=== PATIENT | male | born 1960 | race Caucasian/White ===

== ENCOUNTER 2016-10-25 07:10 | Day surgery (SDC) | payer BC ==
[~2016-10-25] VITALS: Ht 177.8 cm; Wt 89.0 kg
[2016-10-25] VITALS (15 sets, daily range): BP systolic 108–129; BP diastolic 70–83; PULSE 52–66; RESP 16–18; Ht 177.8 cm; Wt 89.0 kg
[~2016-10-25 07:10] MED LIST: ASPIRIN; ATORVASTATIN; LISINOPRIL; METOPROLOL; PLAVIX; ZANTAC
[2016-10-25 09:04] LABS: BASOPHIL # 0.1 10^3/ul (0.0-0.1); BASOPHILS % 0.5 % (0.0-2.0); EOSINOPHILS # 0.2 10^3/ul (0.0-0.5); HEMATOCRIT 43.2 % (42.0-52.0); HEMOGLOBIN 15.1 g/dl (14.0-18.0); LYMPHOCYTES # 2.2 10^3/ul (0.8-2.9); LYMPHOCYTES % 23.6 % (15.0-51.0); MEAN CORPUSCULAR HEMOGLOBIN 30.9 pg (29.0-33.0); MEAN CORPUSCULAR VOLUME 88.5 fl (82.0-101.0); MEAN PLATELET VOLUME 10.8 fl (7.4-10.4); MONOCYTE # 0.8 10^3/ul (0.3-0.9); MONOCYTES % 8.4 % (0.0-11.0); NEUTROPHILS % 65.1 % (39.0-77.0); PLATELET COUNT 201 10^3/UL (140-415); RED BLOOD COUNT 4.88 10^6/ul (4.70-6.10); WHITE BLOOD COUNT 9.2 10^3/ul (4.8-10.8)
[2016-10-25 09:19] LABS: POTASSIUM 4.2 mmol/L (3.5-5.1)
[2016-10-25 09:23] LABS: CALCIUM 9.3 mg/dl (8.4-10.2); CREATININE 0.75 mg/dl (0.61-1.24)
[2016-10-25] MEDS ORDERED: PANT40TA4 PO (09:26)
[2016-10-25] MEDS ORDERED: AMLO5TAB4 PO (09:29)
[2016-10-25] MEDS ORDERED: SOD CHLORIDE 0.9% 1,000 ML IV SCH ×2 (09:30→11:50)
[2016-10-25 09:31] LABS: INR 0.98
[2016-10-25 09:32] LABS: PARTIAL THROMBOPLASTIN TIME 27.4 Sec (25.0-35.0)
[2016-10-25] MEDS ORDERED: HEPARIN 1000 UNITS/NS (A-LINE) 1,000 ML ONE (11:02)
[2016-10-25] MEDS ORDERED: LIDOCAINE 1% (MDV) 20 ML INJ ONE (11:02)
[2016-10-25] MEDS ORDERED: IODIXANOL LOCM 100 ML BTL ONE (11:02)
[2016-10-25] MEDS ORDERED: MIDAZOLAM 1 MG/ML 2 ML INJ ONE (11:02)
[2016-10-25] MEDS ORDERED: FENTAnyl 50 MCG/ML VIAL ONE (11:03)
[2016-10-25] MEDS ORDERED: NITROGLYCERIN (IC) 100 MCG/ML INJ ONE (11:35)
[2016-10-25] MEDS ORDERED: SOD CHLORIDE 0.9% 500 ML ONE (11:35)
--- NOTE | 2016-10-25 11:52 | PDOCDIS ---
Discharge Instructions CONDITION Patient Condition: Good HOME CARE INSTRUCTIONS: Diet Instructions: Low Fat /Cholesterol ACTIVITY: Activity Restrictions: Avoid heavy lifting Activity Restrictions Comment: no driving x 2 days, no lifting >5 pounds x 3 days Chris Gaytan DO Oct 25, 2016 11:52
--- NOTE | 2016-10-26 08:30 | ECORPT ---
DATE OF SERVICE: 10/25/2016 BRICK PICKER OF PROCEDURE: Magdi Rosario MD ROOF PROMENADE TILE SETTER: Dr. Chris Gaytan PROCEDURES: 1. Left heart catheterization. 2. Selective left and right coronary angiography. 3. Right femoral angiography. 4. Mynx closure device use. ____ OF CORONARY ANGIOGRAPHY: PATIENT IDENTIFICATION DATA: This is a very pleasant 56-year-old male patient with past medical his tory of coronary artery disease and coronary angioplasty status, who went to [facility] w ith unstable angina. He was subsequently discharged and given the evidence of ischemia, the patient was subsequently taken to the cardiac evaluation laboratory for evaluation of coronary anatomy, ___ _ events prior to the procedure. I explained to the patient the benefits and risks of this procedu re, which include but are not limited to , ____, stroke, ____, groin infection ____ of vascular surgery, loss of limb, infection. The patient fully understands and agrees and wishes to proceed. MEDICATIONS USED: 1. Versed 1 mg. 2. Fentanyl 25 mcg total used. 3. Lidocaine 10 mL subcutaneously. DESCRIPTION OF THE PROCEDURE: The patient was taken to the cardiac catheterization laboratory where the right groin was prepped in the usual sterile fashion. ____ was infiltrated into the right groi n for local anesthesia. The sheath was introduced into the right femoral artery. Using the modified Seldinger technique, a 5 Thai JL4 and a 5 Thai JR4 catheter was used for selective left and right coronary angiography respectively. Subsequently, a Mynx device was deployed. ____ Subsequently, all catheters are removed. The patient was transported into the holding area in sta e condition. The total amount of contrast used was 25 mL. MEASUREMENTS: Opening aortic pressure 122/65/87. Left ventricular pressures 121/12 with left ventricular ____pressure of 11 mmHg. Final aortic pressure is 117/67/88. There was no gradient during pullback of the pigtail catheter f rom the left ventricle ascending aorta. CORONARY ANGIOGRAPHY: Left main artery is short without evidence of significant obstructive disease. Left anterior descending artery reveals mild arteriosclerotic changes without significant obstructiv e disease. Circumflex artery reveals excellent late stent result without focal obstructive disease, but mild ar teriosclerotic changes. The right coronary artery is a non-dominant vessel. It is small with a maximal luminal diameter of approximately 1.8 mm. Calcifications are visualized at the ostium of the right coronary artery and spasm was observed during introduction of the Jessica catheter. Coronary angiography revealed an ap proximately 50% in-stent stenosis. Given the small luminal diameter and non-dominant nature of this vessel, medical treatment is advised. CONCLUSION: This is a 56-year-old patient with evidence of unstable angina and history of coronary artery disease, who was taken electively to the cardiac catheterization laboratory. He was found to have mild arteriosclerotic changes in the LAD and circumflex artery, the left main artery is patent . There is a 50% in-stent restenosis in the right coronary artery with spasm visualized during cont rast injection in the ostium of the right coronary artery, which is associated with calcification. No complications were present. All findings were explained to the patient and the patient's family. Dictated By: MAGDI ARDON/JOVANY Conf#: [id number] DID#: [id number]
--- NOTE | 2016-10-30 17:37 | RADRPT ---
Vent Rate: 53 bpm RR Interval: 0 msec [place] Interval: 146 msec QRS Duration: 90 msec QT Interval: 430 msec QTC Interval: 403 msec P-R-T Eldridge: 65 - 46 - 49 degrees Sinus bradycardia Otherwise normal ECG Electronically Signed By: Guzman Feliciano [id number]
== END 2016-10-25 17:55 | disposition home or self-care (01) ==
LOC: SDS 07:10
PROVIDERS: ATTEND Internal Medicine Cardiovascular Disease
DX: I25.110 Atherosclerotic heart disease of native coronary artery with unstable angina pectoris (principal)
CPT/HCPCS: 80048; 85025; 85610; 85730; 93005; 93458; C1760; C1769; C1887; C1894; J1644; J2250; J3010; J7040; Q9967; Z7610

== ENCOUNTER 2017-10-30 10:17 | Day surgery (SDC) | END 2017-10-30 10:55 | disposition home or self-care (01) ==